=== PATIENT | male | born 1980 | race Caucasian/White ===

== ENCOUNTER → 2016-08-05 | Outpatient (CLI) | payer OTHER ==
[2016-08-05 14:54] VITALS: BP 151/80; PULSE 88; RESP 16; TEMP 98.2
--- NOTE | 2016-08-06 11:49 | P.PN ---
Subjective This is follow-up visit for this patient with a history of severe and chronic neck pain secondary to cervical radiculopathy, we have done interventional pain management injection, cervical epidural steroid injections 3 and this helped his neck pain significantly, patient reports that occasionally has some neck pain with occasional numbness in his upper extremity, but is not consistent, but overall is satisfied with the result of the treatment, he denies any motor or sensory deficit, and no change in the bowel movement or urination Physical Examinations : 1-Constitutiona : Cooperative , not in acute distress . 2-HEENT : nech ; supple , no Lymphadenopathy , no Thyromegaly , normal thyroid size . eyes : no ptosis , no icterus, no photophobia . ENT : normal of hearing , normal oropharynx , no Thrush . 3- Respiratory : Chest clear to auscultations Bilaterally , no wheezing , no Rhonchi . 4- Cardiovascular : regular rate and rhythem , S1 , S2 , no S3 , no S4. 5- Gastrointestinal : abdomen soft no tenderness , bowel sounds positive all four quadrents , no organomegally . 6- Genitourinary : Defferred . 7- neurologic : Cranial nerve II to XII intact , no focal neurological deffecit . 8-psychatric : alert , oriented X 3 , appropriate affect , intact judgment and insight . 9-Lymphatic : no Lymphadenopathy . 10- musculoskeltal : exams of the cervical spine = motor strength normal bilateral upper extremities facet loading test cervical area positive. exams of the Lumber spine = motor strength lower extremities ,thigh and legs .5/5 deep tendon reflexes : normal Knee Jerk , normal ankle Jerk . Assessment and plan = Cervical radiculopathy, status post cervical epidural steroid injection x3 , pain improved significantly, as well as neck pain(not constant ) she will be given prescription for Motrin 800 mg every 8 hours when necessary dispense 60, and prescription for Flexeril 5 mg every 8 hours dispense 60, and he will follow up with the pain clinic when necessary Objective - Vital Signs Vital signs: Vital Signs Temp 98.2 F 08/05/16 14:48 Pulse 88 08/05/16 14:48 Resp 16 08/05/16 14:48 BP 151/80 08/05/16 14:48 Pulse Ox Intake & Output 08/05/16 08/06/16 08/06/16 18:59 06:59 18:59 Weight 78.925 kg
== END | disposition home or self-care (01) ==
LOC: PNWHC3 14:35
PROVIDERS: ATTEND Specialist
DX: M54.12 Radiculopathy, cervical region (principal)
CPT/HCPCS: 99211

== ENCOUNTER → 2021-02-14 | Outpatient (CLI) | payer OTHER ==
--- NOTE | 2021-02-14 13:21 | CT ---
EXAMINATION TYPE: CT abdomen pelvis wo con DATE OF EXAM: 02/14/2021 COMPARISON: None INDICATION: microscopic hematuria DLP: 692 mGycm, Automated exposure control for dose reduction was used. CONTRAST: 0 mL of Isovue 300. Study performed without Oral Contrast TECHNIQUE: Axial images were obtained from above the diaphragm to the pubic rami in the axial plane a t 5 mm thick sections. Reconstructed images are reviewed on the computer in the coronal plane. FINDINGS: Limited CT sections are obtained the lung bases. The lung bases are clear. CT ABDOMEN: Liver: Normal Spleen: Normal Pancreas: Normal Adrenal glands: The adrenal glands are normal. Gallbladder: Normal Kidneys: No masses are evident. No hydronephrosis is present. No cysts are present. No renal stone s are evident. No hydroureter is evident. Aorta: Vascular calcification is within the aorta. Inferior vena cava: Normal. CT PELVIS: Loops of bowel within the abdomen and pelvis are normal. This study is without oral contrast limi ting bowel evaluation. Appendix: Not visualized. No dilated tubular structure or inflammatory changes evident. Urinary bladder: Normal. Genitourinary structures: Prostate is normal Osseous structures: No suspicious lytic or sclerotic lesions. Couple tiny bone island may be within t he femurs. IMPRESSIONS: 1. No suspicious abnormalities to account for hematuria.
== END | disposition home or self-care (01) ==
LOC: RADCTMAIN 08:13
PROVIDERS: ATTEND Family Medicine
DX: R31.29 Other microscopic hematuria (principal)
CPT/HCPCS: 74176